=== PATIENT | female | born 1940 | race Caucasian/White ===

== ENCOUNTER 2017-09-01 10:37 | Inpatient (IN) | payer MEDICARE, OTHER ==
[~2017-09-01] VITALS: Ht 152.4 cm; Wt 88.3 kg
[~2017-09-01 10:37] MED LIST: ALBU18; LEVO75TA6; LISI-275; METF-370 PO; SIMV-13
[2017-09-01 11:31] LABS: Basophils # (auto) 0.1 uL; Eosinophils # (auto) 0 uL; Hemoglobin 14.6 g/dL (12.2-16.2); Mean Corpuscular Volume 86.5 fL (80.0-100.0); Monocytes # (auto) 1.1 uL
[2017-09-01 11:33] LABS: Basophils % (auto) 0.4 % (0.0-2.0); Eosinophils % (auto) 0.1 % (0.0-7.0); Hematocrit 46.4 % (36.0-46.0); Lymphocytes # (auto) 0.9 uL; Lymphocytes % (auto) 4.4 % (10.0-50.0); Mean Corpuscular Hemoglobin 27.1 pg (28.0-32.0); Mean Corpuscular Hgb Conc. 31.3 g/dL (32.0-36.0); Monocytes % (auto) 5.4 % (0.0-12.0); Neutrophils # (auto) 17.6 uL; Neutrophils % (auto) 89.7 % (37.0-80.0); Platelet Count (auto) 327 10^3/uL (140-450); Red Blood Cells 5.37 10^6/uL (4.0-5.20); Red Cell Distribution Width 15.7 % (11.8-14.3); White Blood Cell 19.6 10^3/uL (4.4-10.8)
[2017-09-01 11:44] LABS: INR 1.12 (0.9-1.15); Partial Thromboplastin Time 29.8 sec (23.78-33.04); Prothrombin Time 11.9 sec (9.27-12.13)
[2017-09-01 11:47] LABS: Lactic Acid w/Reflex 3.1 mmol/L (0.4-2.0)
[2017-09-01 11:50] LABS: Albumin 3.1 g/dL (3.4-5.0); BUN/Creatinine Ratio 52.5; Bilirubin, Total 0.6 mg/dL (0.2-1.0); Calcium 9.4 mg/dL (8.5-10.1); Potassium 3.9 mmol/L (3.5-5.1); Total Protein 7.9 g/dL (6.4-8.2)
[2017-09-01 13:06] LABS: Urine Bacteria MANY /hpf (None Seen); Urine Blood 2+ /uL (Negative); Urine Mucus FEW (None Seen); Urine Specific Gravity 1.027 (1.001-1.035); Urine WBC 108 /hpf (0 - 5)
[2017-09-01] MEDS ORDERED: SODIUM CHLORIDE 0.9% 1,000 ML IV ONE ×2 (13:29)
[2017-09-01] MEDS ORDERED: VANCOMYCIN 1GM/250ML 250 ML IV ONE (13:30)
[2017-09-01] MEDS ORDERED: IOHEXOL 300 MG/ML 100ML BOTTLE IJ ONE (13:33)
[2017-09-01] MEDS ORDERED: METOPROLOL TARTRATE 1MG/1ML-5ML VIAL IV ONE (14:15)
[2017-09-01] MEDS ORDERED: cefTRIAXone 1GM/10ml IVPUSH 10 ML IV ONE (15:00)
[2017-09-01] MEDS ORDERED: TEMAZEPAM 15 MG CAP PO PRN (15:00)
[2017-09-01] MEDS ORDERED: DEXTROSE (50%) 50ML SYRG IV PRN (15:00)
[2017-09-01] MEDS ORDERED: ACETAMINOPHEN 325 MG TAB PO PRN ×2 (15:00)
[2017-09-01] MEDS ORDERED: ONDANSETRON HCL 4 MG/2 ML VIAL IV PRN (15:00)
[2017-09-01] MEDS ORDERED: MORPHINE SULFATE 8mg/ml INJ SDV IV PRN ×2 (15:00)
[2017-09-01] MEDS ORDERED: NITROGLYCERIN 0.4 MG SL TAB SL PRN (15:00)
[2017-09-01] MEDS ORDERED: VANCOMYCIN PER PHARMACY 0 MG IV SCH (15:00)
[2017-09-01] MEDS ORDERED: DOCUSATE SOD 100 MG CAP PO PRN (15:00)
[2017-09-01] MEDS ORDERED: HYDROcodone-ACET 5/325MG TAB PO PRN (15:00)
[2017-09-01] MEDS: SOTALOL HCL 80 MG TAB PO SCH ×2 (15:21→23:00)
[2017-09-01] MEDS: SODIUM CHLORIDE 0.9% 1,000 ML IV SCH (15:21)
[2017-09-01] MEDS: InsuLIN REG 1unit/0.01ml Soln (100units/ml) SC SCH ×2 (17:00→22:33)
[2017-09-01] MEDS: ACCU-CHEK COMFORT CURVE STRIP VI SCH ×2 (17:23→22:33)
[2017-09-01] MEDS: Boost Glucose Control 8 Ounces PO SCH (18:17)
[2017-09-01] MEDS: APIXABAN 5 MG TAB PO SCH (23:00)
[2017-09-01] MEDS: NYSTATIN TOPICAL POWDER 15GM TOP SCH (23:01)
[2017-09-01] MEDS: ASCORBIC ACID 500 MG TAB PO SCH (23:01)
[2017-09-01] MEDS: FAMOTIDINE 20 MG TAB PO SCH (23:01)
[2017-09-01] MEDS ORDERED: ALBUTEROL SULF 2.5 MG/0.5ML(0.5%) NEB SOLN NEB ONE (23:30)
[2017-09-01] MEDS ORDERED: IPRATROPIUM BROM 0.5 MG/2.5ML INH SOL NEB ONE (23:30)
[2017-09-02] VITALS (13 sets, daily range): BP systolic 98–160; BP diastolic 48–102
[2017-09-02 05:13] LABS: Basophils # (auto) 0.1 uL; Basophils % (auto) 0.9 % (0.0-2.0); Eosinophils # (auto) 0.2 uL; Eosinophils % (auto) 1.2 % (0.0-7.0); Hematocrit 41.5 % (36.0-46.0); Lymphocytes # (auto) 0.8 uL; Lymphocytes % (auto) 5.3 % (10.0-50.0); Mean Corpuscular Hemoglobin 27.2 pg (28.0-32.0); Mean Corpuscular Hgb Conc. 31.5 g/dL (32.0-36.0); Mean Corpuscular Volume 86.5 fL (80.0-100.0); Monocytes # (auto) 0.8 uL; Monocytes % (auto) 5.1 % (0.0-12.0); Neutrophils # (auto) 13.5 uL; Neutrophils % (auto) 87.5 % (37.0-80.0); Nucleated Red Blood Cells % 0.1 %; Platelet Count (auto) 313 10^3/uL (140-450); Red Blood Cells 4.79 10^6/uL (4.0-5.20); Red Cell Distribution Width 16.1 % (11.8-14.3); White Blood Cell 15.5 10^3/uL (4.4-10.8)
[2017-09-02] MEDS ORDERED: LORazepam 2MG/ML-1ML VIAL ONE (05:23)
[2017-09-02 05:30] LABS: Albumin 2.6 g/dL (3.4-5.0); BUN/Creatinine Ratio 44.6; Calcium 8.8 mg/dL (8.5-10.1)
[2017-09-02] MEDS ORDERED: LORazepam 2MG/ML-1ML VIAL IV ONE (05:30)
[2017-09-02 05:34] LABS: Bilirubin, Total 0.3 mg/dL (0.2-1.0)
[2017-09-02] MEDS: InsuLIN REG 1unit/0.01ml Soln (100units/ml) SC SCH ×4 (07:00→22:00)
[2017-09-02] MEDS: ACCU-CHEK COMFORT CURVE STRIP VI SCH ×4 (07:16→22:00)
[2017-09-02] MEDS: SODIUM CHLORIDE 0.9% 1,000 ML IV SCH (07:38)
[2017-09-02] MEDS: Boost Glucose Control 8 Ounces PO SCH ×3 (08:29→18:00)
[2017-09-02] MEDS ORDERED: cefTRIAXone 1GM/10ml IVPUSH 10 ML IV SCH (09:00)
[2017-09-02] MEDS: MULTIPLE VITAMIN TAB PO SCH (11:22)
[2017-09-02] MEDS: ASCORBIC ACID 500 MG TAB PO SCH ×2 (11:22→22:00)
[2017-09-02] MEDS: SOTALOL HCL 80 MG TAB PO SCH ×2 (11:23→22:00)
[2017-09-02] MEDS: APIXABAN 5 MG TAB PO SCH ×2 (11:23→22:00)
[2017-09-02] MEDS: ZINC SULFATE 220 MG CAP PO SCH (11:23)
[2017-09-02] MEDS: FAMOTIDINE 20 MG TAB PO SCH ×2 (11:23→22:00)
[2017-09-02] MEDS: NYSTATIN TOPICAL POWDER 15GM TOP SCH ×2 (11:24→22:00)
[2017-09-02] MEDS: LEVOFLOXACIN 500MG 100 ML IV SCH (11:24)
[2017-09-02] MEDS: methylPREDNISolone SOD SUCC 125 MG/2 ML VL IV SCH ×2 (12:31→20:13)
[2017-09-02] MEDS ORDERED: VANCOMYCIN 1GM/250ML 250 ML IV SCH (14:00)
[2017-09-02] MEDS: AZITHROMYCIN 500MG/ 250ML 250 ML IV SCH (14:51)
[2017-09-02] MEDS ORDERED: LORazepam 2MG/ML-1ML VIAL IV PRN (15:15)
[2017-09-02] MEDS: ALBUTEROL SULF 2.5 MG/0.5ML(0.5%) NEB SOLN NEB SCH ×2 (16:03→18:39)
[2017-09-02] MEDS: IPRATROPIUM BROM 0.5 MG/2.5ML INH SOL NEB SCH ×2 (16:03→18:39)
[2017-09-03] VITALS (9 sets, daily range): BP systolic 110–155; BP diastolic 52–116
[2017-09-03] MEDS: SODIUM CHLORIDE 0.9% 1,000 ML IV SCH (00:16)
[2017-09-03] MEDS: IPRATROPIUM BROM 0.5 MG/2.5ML INH SOL NEB SCH ×4 (00:56→19:16)
[2017-09-03] MEDS: ALBUTEROL SULF 2.5 MG/0.5ML(0.5%) NEB SOLN NEB SCH ×4 (00:56→19:16)
[2017-09-03] MEDS ORDERED: VANCOMYCIN PER PHARMACY 0 MG IV SCH (01:30)
[2017-09-03] MEDS: methylPREDNISolone SOD SUCC 125 MG/2 ML VL IV SCH (04:00)
[2017-09-03 06:16] LABS: Basophils # (auto) 0 uL; Basophils % (auto) 0.3 % (0.0-2.0); Eosinophils # (auto) 0 uL; Eosinophils % (auto) 0.1 % (0.0-7.0); Hematocrit 41.4 % (36.0-46.0); Hemoglobin 12.9 g/dL (12.2-16.2); Lymphocytes # (auto) 1.2 uL; Lymphocytes % (auto) 7.5 % (10.0-50.0); Mean Corpuscular Hemoglobin 26.9 pg (28.0-32.0); Mean Corpuscular Volume 86.8 fL (80.0-100.0); Monocytes # (auto) 0.4 uL; Monocytes % (auto) 2.7 % (0.0-12.0); Neutrophils # (auto) 14.1 uL; Neutrophils % (auto) 89.4 % (37.0-80.0); Nucleated Red Blood Cells % 0.1 %; Platelet Count (auto) 270 10^3/uL (140-450); Red Blood Cells 4.78 10^6/uL (4.0-5.20); Red Cell Distribution Width 15.5 % (11.8-14.3); White Blood Cell 15.7 10^3/uL (4.4-10.8)
[2017-09-03 06:45] LABS: Albumin 2.6 g/dL (3.4-5.0); BUN/Creatinine Ratio 43.3; Calcium 8.7 mg/dL (8.5-10.1); Potassium 4.7 mmol/L (3.5-5.1)
[2017-09-03] MEDS: ACCU-CHEK COMFORT CURVE STRIP VI SCH ×4 (06:54→21:16)
[2017-09-03] MEDS: InsuLIN REG 1unit/0.01ml Soln (100units/ml) SC SCH ×4 (06:54→21:16)
[2017-09-03 07:03] LABS: Bilirubin, Total 0.3 mg/dL (0.2-1.0); Total Protein 7.2 g/dL (6.4-8.2)
[2017-09-03] MEDS: VANCOMYCIN 1GM/250ML 250 ML IV SCH (08:09)
[2017-09-03] MEDS: SOD CHL 0.45% 1,000 ML IV SCH ×2 (08:29→21:17)
[2017-09-03] MEDS: Boost Glucose Control 8 Ounces PO SCH ×3 (08:40→18:00)
[2017-09-03] MEDS: LEVOFLOXACIN 500MG 100 ML IV SCH (09:49)
[2017-09-03] MEDS: ZINC SULFATE 220 MG CAP PO SCH (09:49)
[2017-09-03] MEDS: MULTIPLE VITAMIN TAB PO SCH (09:50)
[2017-09-03] MEDS: APIXABAN 5 MG TAB PO SCH ×2 (09:50→21:15)
[2017-09-03] MEDS: SOTALOL HCL 80 MG TAB PO SCH ×2 (09:50→21:16)
[2017-09-03] MEDS: NYSTATIN TOPICAL POWDER 15GM TOP SCH ×2 (09:51→21:16)
[2017-09-03] MEDS: ASCORBIC ACID 500 MG TAB PO SCH ×2 (09:51→21:16)
[2017-09-03] MEDS: FAMOTIDINE 20 MG TAB PO SCH ×2 (09:51→21:15)
[2017-09-03] MEDS ORDERED: LIDOCAINE 2% (LOCAL ANESTH.) PF 5ml SDV ONE (10:22)
[2017-09-03] MEDS: AZITHROMYCIN 500MG/ 250ML 250 ML IV SCH (11:52)
[2017-09-03] MEDS: methylPREDNISolone SOD SUCC 40 MG/ML VL IV SCH ×2 (14:34→21:17)
[2017-09-04] MEDS: IPRATROPIUM BROM 0.5 MG/2.5ML INH SOL NEB SCH ×4 (00:55→18:35)
[2017-09-04] MEDS: ALBUTEROL SULF 2.5 MG/0.5ML(0.5%) NEB SOLN NEB SCH ×4 (00:56→18:35)
[2017-09-04 05:00] VITALS: BP 154/79
[2017-09-04 06:03] LABS: Basophils # (auto) 0.1 uL; Basophils % (auto) 0.6 % (0.0-2.0); Eosinophils # (auto) 0 uL; Hematocrit 40.3 % (36.0-46.0); Hemoglobin 12.5 g/dL (12.2-16.2); Lymphocytes # (auto) 0.6 uL; Lymphocytes % (auto) 3.3 % (10.0-50.0); Mean Corpuscular Volume 87.1 fL (80.0-100.0); Monocytes # (auto) 0.5 uL; Monocytes % (auto) 2.9 % (0.0-12.0); Neutrophils # (auto) 17.1 uL; Neutrophils % (auto) 93.2 % (37.0-80.0); Platelet Count (auto) 285 10^3/uL (140-450); Red Blood Cells 4.62 10^6/uL (4.0-5.20); Red Cell Distribution Width 15.8 % (11.8-14.3); White Blood Cell 18.3 10^3/uL (4.4-10.8)
[2017-09-04 06:33] LABS: Potassium 4.6 mmol/L (3.5-5.1)
[2017-09-04] MEDS: methylPREDNISolone SOD SUCC 40 MG/ML VL IV SCH ×2 (06:35→14:00)
[2017-09-04] MEDS: InsuLIN REG 1unit/0.01ml Soln (100units/ml) SC SCH ×3 (06:35→16:37)
[2017-09-04] MEDS: ACCU-CHEK COMFORT CURVE STRIP VI SCH ×3 (06:35→16:43)
[2017-09-04 06:40] LABS: Albumin 2.5 g/dL (3.4-5.0); Calcium 9.2 mg/dL (8.5-10.1)
[2017-09-04 06:57] LABS: Bilirubin, Total 0.2 mg/dL (0.2-1.0)
[2017-09-04 06:59] LABS: BUN/Creatinine Ratio 40.7; Total Protein 6.7 g/dL (6.4-8.2)
[2017-09-04] MEDS: VANCOMYCIN 1GM/250ML 250 ML IV SCH (07:55)
[2017-09-04] MEDS: Boost Glucose Control 8 Ounces PO SCH ×3 (07:56→18:09)
[2017-09-04 08:00] VITALS: BP 111/60
[2017-09-04] MEDS ORDERED: fentaNYL CITRATE 100 MCG/2 ML VL ONE (08:37)
[2017-09-04] MEDS ORDERED: MIDAZOLAM HCL 1MG/1ML-2 ML VIAL ONE (08:37)
[2017-09-04 08:49] VITALS: BP 111/60
[2017-09-04] MEDS: FAMOTIDINE 20 MG TAB PO SCH (10:00)
[2017-09-04] MEDS: AZITHROMYCIN 500MG/ 250ML 250 ML IV SCH (10:00)
[2017-09-04] MEDS: SOD CHL 0.45% 1,000 ML IV SCH (10:55)
[2017-09-04] MEDS: ZINC SULFATE 220 MG CAP PO SCH (10:58)
[2017-09-04] MEDS: APIXABAN 5 MG TAB PO SCH (10:58)
[2017-09-04] MEDS: LEVOFLOXACIN 500MG 100 ML IV SCH (10:58)
[2017-09-04] MEDS: MULTIPLE VITAMIN TAB PO SCH (11:00)
[2017-09-04] MEDS: SOTALOL HCL 80 MG TAB PO SCH (11:00)
[2017-09-04] MEDS: ASCORBIC ACID 500 MG TAB PO SCH (11:00)
[2017-09-04] MEDS: NYSTATIN TOPICAL POWDER 15GM TOP SCH (11:01)
[2017-09-04 12:42] VITALS: BP 120/64
[2017-09-04 17:00] VITALS: BP 116/60
== END 2017-09-04 20:36 | DRG 871 ==
LOC: ER 10:37 → EDBD 10:37 → OVERFLOW 10:38 → TELE-WESTW 09-03 11:08
PROVIDERS: ADMIT Internal Medicine; ATTEND Internal Medicine
PROC: 5A09457 Assistance with Respiratory Ventilation, 24-96 Consecutive Hours, Continuous Positive Airway Pressure (ICD-10-PCS; principal; 2017-09-02)
DX: A41.9 Sepsis, unspecified organism (principal); J96.21 Acute and chronic respiratory failure with hypoxia; E11.21 Type 2 diabetes mellitus with diabetic nephropathy; E11.40 Type 2 diabetes mellitus with diabetic neuropathy, unspecified; I48.91 Unspecified atrial fibrillation; E87.2 Acidosis; E11.22 Type 2 diabetes mellitus with diabetic chronic kidney disease; I48.92 Unspecified atrial flutter; E44.1 Mild protein-calorie malnutrition; B37.9 Candidiasis, unspecified; J96.22 Acute and chronic respiratory failure with hypercapnia; I42.9 Cardiomyopathy, unspecified; I13.0 Hypertensive heart and chronic kidney disease with heart failure and stage 1 through stage 4 chronic kidney disease, or unspecified chronic kidney disease; N39.0 Urinary tract infection, site not specified; I50.20 Unspecified systolic (congestive) heart failure; J44.1 Chronic obstructive pulmonary disease with (acute) exacerbation; E03.9 Hypothyroidism, unspecified; I25.10 Atherosclerotic heart disease of native coronary artery without angina pectoris; E78.5 Hyperlipidemia, unspecified; J44.9 Chronic obstructive pulmonary disease, unspecified; N18.3 Chronic kidney disease, stage 3 (moderate); B96.20 Unspecified Escherichia coli [E. coli] as the cause of diseases classified elsewhere; I70.0 Atherosclerosis of aorta; M19.90 Unspecified osteoarthritis, unspecified site; K80.20 Calculus of gallbladder without cholecystitis without obstruction; K44.9 Diaphragmatic hernia without obstruction or gangrene; N20.0 Calculus of kidney; Z79.01 Long term (current) use of anticoagulants; Z82.3 Family history of stroke; Z90.710 Acquired absence of both cervix and uterus; Z99.81 Dependence on supplemental oxygen; Z68.38 Body mass index [BMI] 38.0-38.9, adult
CPT/HCPCS: 36415; 36600; 51702; 70450; 71045; 71260; 73501; 74176; 80053; 81001; 82550; 82805; 82962; 83036; 83605; 84443; 84484; 85025; 85610; 85730; 86635; 87040; 87077; 87086; 87088; 87186; 87205; 93005; 93306; 94640; 94660; 96361; 96365; 96375; G0378; J1815; J1956; J2250